=== PATIENT | male | born 1935 | race Two or more races ===

== ENCOUNTER 2024-01-18 00:49 | Inpatient (IN) | payer OTHER ==
[~2024-01-18] VITALS: Ht 175.3 cm; Wt 68.0 kg
[2024-01-18] MEDS ORDERED: ATORVASTATIN CA20 MG PO (01:11)
[2024-01-18] MEDS ORDERED: PENTOXIFYLLINE400 MG PO (01:11)
[2024-01-18] MEDS ORDERED: CARVEDILOL6.25 MG (01:12)
[2024-01-18] MEDS ORDERED: INDAPAMIDE1.25 MG PO (01:12)
[2024-01-18] MEDS ORDERED: PLAVIX75 MG PO (01:13)
[2024-01-18] MEDS ORDERED: NITROGLYCERIN IN 5 % DEXTROSE 250 ML IV SCH ×2 (01:45→10:30)
[2024-01-18 01:56] LABS: HEMOGLOBIN 13.7 g/dL (13-16.00); MEAN CELL VOLUME 89.9 fL (80.0-100.00); MEAN CORPUSCULAR HEMOGLOBIN 30.8 pg (27.00-32.0); MEAN CORPUSCULAR HGB CONC 34.3 g/dl (32.0-36.0); PLATELET COUNT 140 K/uL (150-450); RED BLOOD COUNT 4.44 M/uL (4.00-6.00); RED CELL DISTRIBUTION WIDTH 14.1 % (11.5-14.5)
[2024-01-18 02:22] LABS: INR 1.14; PARTIAL THROMBOPLASTIN TIME 32.1 SECONDS (22.0-34.0); PROTHROMBIN TIME 11.9 SECONDS (9.0-11.5)
[2024-01-18 02:26] LABS: ALBUMIN 4.4 gm/dL (3.4-5.0); BILIRUBIN TOTAL 0.84 mg/dL (0.3-1.2); CALCIUM 9.4 mg/dL (8.5-10.1); CREATININE SERUM 1.56 mg/dL (0.70-1.30); GFR 42.21; GLOBULINA 3.9 G/DL (2.4-3.5); POTASSIUM 4.28 mEq/L (3.5-5.1); TOTAL PROTEIN 8.3 gm/dL (6.4-8.2)
[2024-01-18] MEDS ORDERED: FAMOTIDINE/PF 20 MG/2 ML VIAL IV SCH (10:19)
[2024-01-18] MEDS ORDERED: CLOPIDOGREL BISULFATE 75 MG TABLET PO SCH (10:30)
[2024-01-18 11:17] LABS: INR 1.18; PROTHROMBIN TIME 12.2 SECONDS (9.0-11.5)
[2024-01-18 11:28] LABS: ABG PH 7.397 (7.35-7.45); ABG pCO2 43.7 mmHg (35-45)
[2024-01-18 11:29] LABS: ABG PO2 50.7 mmHg (80-100)
[2024-01-18 11:30] LABS: BASE EXCESS 1.1 mmol/l; BICARBONATE 26.3 mmol/l (23-25); SaO2 85.6 %; Tco2 27.6 mmol/l; allen test SATISFACTORY; o2 21 %; puncture site RADIAL RIGHT
[2024-01-18 12:10] LABS: CHOL HDL RATIO 1.9 (0-5.0)
[2024-01-18] MEDS ORDERED: METOPROLOL SUCCINATE 50 MG TAB.SR.24H PO SCH (15:33)
[2024-01-18] MEDS ORDERED: AMLODIPINE BESYLATE 5 MG TABLET PO SCH (17:00)
[2024-01-19] MEDS ORDERED: HALOPERIDOL LACTATE 5 MG/ML AMPUL IV PRN (03:00)
[2024-01-19] MEDS ORDERED: METOPROLOL TARTRATE 5MG/5ML AMPUL IV PRN (08:00)
[2024-01-19] MEDS ORDERED: METOPROLOL SUCCINATE 50 MG TAB.SR.24H PO SCH ×2 (09:00→21:00)
[2024-01-19] MEDS ORDERED: FAMOTIDINE/PF 20 MG/2 ML VIAL IV SCH (09:00)
[2024-01-19] MEDS ORDERED: ENOXAPARIN SODIUM 60 MG/0.6 ML SYRINGE SUBCUTANEO SCH ×2 (09:00→21:00)
[2024-01-19] MEDS ORDERED: HALOPERIDOL 2 MG TABLET PO PRN (17:00)
[2024-01-19] MEDS ORDERED: LOSARTAN POTASSIUM 50 MG TABLET PO SCH (17:03)
[2024-01-19] MEDS ORDERED: ZOLPIDEM TARTRATE 5 MG TABLET PO SCH (21:00)
[2024-01-20] MEDS ORDERED: DILTIAZEM HCL 50 MG/10 ML VIAL IV SCH (00:15)
[2024-01-20] MEDS ORDERED: DILTIAZEM IV SCH (02:45)
[2024-01-20 07:45] LABS: HEMOGLOBIN 13.8 g/dL (13-16.00); MEAN CELL VOLUME 91.3 fL (80.0-100.00); MEAN CORPUSCULAR HEMOGLOBIN 31.4 pg (27.00-32.0); MEAN CORPUSCULAR HGB CONC 34.4 g/dl (32.0-36.0); PLATELET COUNT 148 K/uL (150-450); RED BLOOD COUNT 4.38 M/uL (4.00-6.00); RED CELL DISTRIBUTION WIDTH 13.9 % (11.5-14.5)
[2024-01-20 08:09] LABS: ALBUMIN 4.5 gm/dL (3.4-5.0); BILIRUBIN TOTAL 1.18 mg/dL (0.3-1.2); CALCIUM 9.9 mg/dL (8.5-10.1); CREATININE SERUM 2.16 mg/dL (0.70-1.30); GLOBULINA 3.2 G/DL (2.4-3.5); POTASSIUM 4.91 mEq/L (3.5-5.1); TOTAL PROTEIN 7.7 gm/dL (6.4-8.2)
[2024-01-20] MEDS ORDERED: AMIODARONE HCL 200 MG TABLET PO SCH (09:00)
[2024-01-20] MEDS ORDERED: DILTIAZEM HCL 125 MG in 0.9 % SODIUM CHLORIDE 100 ML IV SCH (09:00)
[2024-01-20] MEDS ORDERED: LOSARTAN POTASSIUM 25 MG TABLET PO SCH (09:00)
[2024-01-20] MEDS ORDERED: METOPROLOL SUCCINATE 50 MG,METOPROLOL SUCCINATE 25 MG PO SCH (09:00)
[2024-01-20] MEDS ORDERED: QUETIAPINE FUMARATE 25 MG TABLET PO SCH (17:00)
[2024-01-21] MEDS ORDERED: DILTIAZEM IV SCH (00:15)
[2024-01-21] MEDS ORDERED: METOPROLOL SUCCINATE 50 MG TAB.SR.24H PO SCH (09:00)
[2024-01-21] MEDS ORDERED: ENOXAPARIN SODIUM 80 MG/0.8 ML SYRINGE SUBCUTANEO SCH (09:00)
[2024-01-21] MEDS ORDERED: AMLODIPINE BESYLATE 10 MG TABLET PO SCH (17:00)
[2024-01-22] MEDS ORDERED: APIXABAN 2.5 MG TABLET PO SCH (17:00)
== END 2024-01-23 13:33 | disposition home or self-care (01) | DRG 281 ==
LOC: ER 00:49 → MEDI 10:22
PROVIDERS: General Practice; Internal Medicine; ADMIT Internal Medicine; ATTEND Internal Medicine
PROC: B24BYZZ Ultrasonography of Heart with Aorta using Other Contrast (ICD-10-PCS; principal; 2024-01-18)
PROC: 4A12X4Z Monitoring of Cardiac Electrical Activity, External Approach (ICD-10-PCS; 2024-01-18)
DX: I21.4 Non-ST elevation (NSTEMI) myocardial infarction (principal); I50.20 Unspecified systolic (congestive) heart failure; I50.9 Heart failure, unspecified; I48.91 Unspecified atrial fibrillation; N18.9 Chronic kidney disease, unspecified; I10 Essential (primary) hypertension